=== PATIENT | female | born 1970 | race Two or more races ===

== ENCOUNTER 2024-09-03 12:00 | Day surgery (SDC) | payer MEDICAID, SELFPAY ==
--- NOTE | 2024-08-30 15:25 | ESHP_ITS ---
RE: DEDE LAZO : 1970 DATE OF ADMISSION: 09/02/2024 HISTORY OF PRESENT ILLNESS: This patient is a 54-year-old female who speaks very good [place]. The patient was seen for a colonoscopy at the [facility] in June. The patient has had some hemorrhoids and occasionally has rectal bleeding. She was found to have a positive FOBT. The patient has had a colonoscopy twice in the past and the last one was about 15 years ago done at the hospital. The patient was morbidly obese and has had a gastric bypass and has lost weight. The patient also has diffuse abdominal pain and she was diagnosed as having gallstones but no surgery was done. I do not know the reason for that. She now complains that she has poor control of the stools occasionally and has soilage. The patient is working for the critical access hospital. The patient has now regained some of the weight she lost after the bypass surgery and now she is still weighing about 200 pounds. HOME MEDICATIONS: Consisted of levothyroxine 125 mcg daily. PHYSICAL EXAMINATION: VITAL SIGNS: Temperature 97.8, pulse 84, respirations 20, BP 111/72. GENERAL: Obese female who appeared to be her stated age. HEENT: Head was normal. Eyes were normal. Ear, nose, and throat were normal. NECK: Normal. Thyroid was normal. CHEST: Revealed good breath sounds. HEART: Sinus rhythm. ABDOMEN: Surgical scar from bladder left. IMPRESSION: 1. History of rectal bleeding with positive atrial fibrillation. 2. History of gallstones. 3. Hypothyroidism. 4. Hyperlipidemia. COURSE OF ACTION: The patient undergoes screening colonoscopy. Her abdominal pain may be related to the gallstones. She is in the process of getting an ultrasound to confirm that. I explained to her that the lack of control over the stools is not going to be evaluated by a colonoscopy. The procedure was explained to her in detail including potential complications like perforation, recurring surgery, etc. The patient is agreeable and the procedure responds on 09/02. DT: 14:18:11 TT: 15:23:00 Ref: [id number] - TID: [id number]
[2024-09-02 10:56] VITALS: BMI 34.7
[2024-09-03] VITALS (19 sets, daily range): BP systolic 113–169; BP diastolic 65–109; PULSE 60–88; RESP 10–20; TEMP 36.2–36.5; O2SAT 92–100; BMI 41.8
[2024-09-03] MEDS: RINGERS LACTATED 500 ML 1,000 ML 20 ML IV (12:27)
--- NOTE | 2024-09-03 14:00 | SUR.OPER ---
Patient in OR4, performing a colonoscopy under IV moderate sedation. patient is having pain with any slight movement of the colonoscope. additional sedation medications were given but the pain is not relieved. requests for anesthesia to come help relieve the patient's discomfort as the sedation was not working for her. Daylin BOUCHER clinical bridge manager comes into OR room and informs Shey that is on the way to the facility to take over the sedation and transition to MAC. Brittaney BOUCHER administered 6mg versed, 150mcg of fentanyl, and 50mg of Benadryl prior to 's arrival at 1415. patient was then adequately medicated and pain was relieved throughout the remainder of procedure.
--- NOTE | 2024-09-03 14:30 | SUR.PHASEII ---
1430: Pt. AAOx4, vitals stable, breathing unlabored, no complaint of pain or nausea, no dressing in place, no active bleed noted, report received from MD [place] and Brittaney BOUCHER.
--- NOTE | 2024-09-03 14:41 | XR_ITS ---
Examination: Gastrografin enema with KUB Fluoroscopy 21 spot fluoroscopic films of the colon Exam date and time: September 03, 2024 1502 hours INDICATIONS: Incomplete colonoscopy today TECHNIQUE AND FINDINGS: Comment filled in retrograde manner to the cecum with reflux into the terminal ileum Sigmoid and descending colon colonic diverticulosis No diverticulitis There is stool in the right colon No constricting colonic lesion No rectal or other ulcerations Evacuation partial, mucosal detail appears satisfactory on the postevacuation films IMPRESSION: Colonic diverticulosis, no diverticulitis No constricting colonic lesion
--- NOTE | 2024-09-03 15:00 | SUR.PHASEII ---
1500: Pt. sent to radiology for barium enema. Pt. AAOx4, vitals stable, breathing unlabored, no complaint of pain or nausea.
--- NOTE | 2024-09-03 16:10 | SUR.PHASEII ---
1610: Pt. back from radiology. Pt. AAOx4, vitals stable, breathing unlabored, no complaint of pain or nausea.
--- NOTE | 2024-09-03 16:40 | SUR.PHASEII ---
1640: Pt. AAOx4, vitals stable, breathing unlabored, no complaint of pain or nausea, no dressing in place, no active bleed noted, pt. tolerated sips of water well, pt. ambulated to wheelchair with steady gait and no assist, no complications. Gave discharge instructions to the pt. and her ride, both verbalized understanding and had no further quesitons. Pt. left with all personal belongings.
== END 2024-09-03 16:40 | disposition home or self-care (01) ==
PROVIDERS: PCP Family Medicine; Referring Provider Surgery; Visit Provider Surgery
PROC: 0DJD8ZZ Inspection of Lower Intestinal Tract, Via Natural or Artificial Opening Endoscopic (ICD-10-PCS; CPT 45378; principal; 2024-09-03 13:00)
DX: Z12.11 Encounter for screening for malignant neoplasm of colon (principal); K80.20 Calculus of gallbladder without cholecystitis without obstruction; I48.91 Unspecified atrial fibrillation; E78.5 Hyperlipidemia, unspecified; E66.01 Morbid (severe) obesity due to excess calories; E03.9 Hypothyroidism, unspecified; Z87.19 Personal history of other diseases of the digestive system; Z98.84 Bariatric surgery status; Z68.41 Body mass index [BMI] 40.0-44.9, adult
CPT/HCPCS: 45330; 74270; 81025; J1200; J2250; J3010; J7120; Q9963